=== PATIENT | female | born 1965 | race Caucasian/White ===

== ENCOUNTER → 2017-06-07 | Outpatient (CLI) | payer OTHER | END | disposition home or self-care (01) | LOC: RAH 12:31 | PROVIDERS: ATTEND Physical Medicine & Rehabilitation | DX: M25.412 Effusion, left shoulder (principal) | CPT/HCPCS: 73218 ==

== ENCOUNTER → 2018-08-03 | Outpatient (CLI) | payer OTHER | END | disposition home or self-care (01) | LOC: RAH 10:45 | PROVIDERS: ATTEND Physical Medicine & Rehabilitation | DX: M48.061 Spinal stenosis, lumbar region without neurogenic claudication (principal) | CPT/HCPCS: 72110 ==

== ENCOUNTER → 2020-07-08 | Outpatient (CLI) | payer BC | END | disposition home or self-care (01) | LOC: RAH 14:27 | PROVIDERS: ATTEND Physical Medicine & Rehabilitation | DX: M51.16 Intervertebral disc disorders with radiculopathy, lumbar region (principal); M25.551 Pain in right hip | CPT/HCPCS: 72114; 73502 ==

== ENCOUNTER → 2022-05-27 | Outpatient (CLI) | payer BC | END | disposition home or self-care (01) | LOC: RAH 14:47 | PROVIDERS: ATTEND Physical Medicine & Rehabilitation | DX: M25.841 Other specified joint disorders, right hand (principal); M19.041 Primary osteoarthritis, right hand; M19.042 Primary osteoarthritis, left hand; L40.50 Arthropathic psoriasis, unspecified | CPT/HCPCS: 73130 ==

== ENCOUNTER → 2023-01-13 | Outpatient (CLI) | payer BC | END | disposition home or self-care (01) | LOC: RAH 10:09 | PROVIDERS: ATTEND Urology | DX: N20.2 Calculus of kidney with calculus of ureter (principal); K57.90 Diverticulosis of intestine, part unspecified, without perforation or abscess without bleeding; K76.89 Other specified diseases of liver; M47.815 Spondylosis without myelopathy or radiculopathy, thoracolumbar region; Z98.82 Breast implant status | CPT/HCPCS: 74018; 74176; 76100 ==